=== PATIENT | male | born 1975 | race Caucasian/White ===

== ENCOUNTER 2018-01-22 19:10 | Emergency (ER) | payer SELFPAY ==
[~2018-01-22] VITALS: Ht 175.3 cm; Wt 79.8 kg
[2018-01-23 00:04] VITALS: BP 129/72
[2018-01-23] MEDS ORDERED: IBUPROFEN 800 MG TAB PO ONE (02:15)
[2018-01-23] MEDS ORDERED: cefTRIAXone SOD 1,000 MG VL ONE (02:15)
[2018-01-23] MEDS ORDERED: cefTRIAXone W LIDOCAINE 1 GM IM IM ONE (02:15)
[2018-01-23] MEDS ORDERED: LIDOCAINE 1% HCL (LOCAL ANESTH.) INJ 20ML MDV ONE (02:15)
== END 2018-01-23 02:30 | disposition home or self-care (01) ==
LOC: ER 19:10
DX: L02.414 Cutaneous abscess of left upper limb (principal); L03.114 Cellulitis of left upper limb; F17.210 Nicotine dependence, cigarettes, uncomplicated; Z59.0 Homelessness
CPT/HCPCS: 96372; 99283; J0696; J2001